=== PATIENT | male | born 1950 | race Two or more races ===

== ENCOUNTER 2019-02-09 11:06 | Inpatient (IN) | payer SELFPAY ==
[~2019-02-09] VITALS: Ht 167.6 cm; Wt 73.6 kg
[2019-02-09 16:28] LABS: Basophils # (auto) 0.1 uL; Basophils % (auto) 1.1 % (0.0-2.0); Eosinophils # (auto) 0.1 uL; Eosinophils % (auto) 1.4 % (0.0-7.0); Hematocrit 45.4 % (41.0-53.0); Hemoglobin 15.5 g/dL (13.5-17.5); Lymphocytes # (auto) 1.6 uL; Mean Corpuscular Hemoglobin 30.6 pg (28.0-32.0); Mean Corpuscular Hgb Conc. 34.1 g/dL (32.0-36.0); Mean Corpuscular Volume 89.8 fL (80.0-100.0); Monocytes # (auto) 0.7 uL; Monocytes % (auto) 7.6 % (0.0-12.0); Neutrophils # (auto) 6.2 uL; Neutrophils % (auto) 71.9 % (37.0-80.0); Nucleated Red Blood Cells % 0.1 %; Platelet Count (auto) 236 10^3/uL (140-450); Red Blood Cells 5.06 10^6/uL (4.5-5.90); Red Cell Distribution Width 13.6 % (11.8-14.3); White Blood Cell 8.7 10^3/uL (4.4-10.8)
[2019-02-09] MEDS ORDERED: ACETAMINOPHEN 325 MG TAB PO ONE (16:45)
[2019-02-09] MEDS ORDERED: cloNIDine HCL 0.1 MG TAB PO ONE (16:45)
[2019-02-09 17:12] LABS: Calcium 9.1 mg/dL (8.5-10.1); Potassium 3.9 mmol/L (3.5-5.1)
[2019-02-09 17:15] LABS: BUN/Creatinine Ratio 10.5
[2019-02-09] MEDS ORDERED: MORPHINE SULF INJ 2 MG/ML SYRINGE 1ML IV PRN ×2 (20:00)
[2019-02-09] MEDS ORDERED: ONDANSETRON HCL 4 MG/2 ML VIAL IV PRN (20:00)
[2019-02-09] MEDS ORDERED: ACETAMINOPHEN 500 MG TAB PO PRN (20:00)
[2019-02-09] MEDS ORDERED: NITROGLYCERIN 0.4 MG SL TAB SL PRN (20:00)
[2019-02-09] MEDS ORDERED: HYDROcodone-ACET 5/325MG TAB PO PRN (20:00)
[2019-02-09] MEDS ORDERED: hydrALAZINE HCL 20 MG/ML VL IV PRN (20:00)
[2019-02-09] MEDS: ATORVASTATIN 20 MG TAB PO SCH (21:31)
[2019-02-09 21:55] VITALS: BP 135/82
--- NOTE | 2019-02-09 21:55 | NUR ---
Telemetry admit from ER LOYDA CASH admitted to Telemetry unit after SBAR received. Patient oriented to ZAKIA JIMENEZ RN primary RN, unit, room, bed, and unit policies regarding patient care and visiting hours. Patient now on continuous telemetry monitoring, tele box #1 and telemetry reading on arrival to unit is sinus bradycardia. Patient alert and orientated x4. No s/s of SOB or distress noted and patient denies pain at this time. No facial droop noted. Patient's speech clear and appropriate. Bed locked in lowest position with side rails up x2. Bed alarm on for safety. Call light left within reach. Patient placed on bedside oxygen, weighed by bedscale and encouraged to call if they need something. All questions and concerns addressed, patient verbalized understanding. Will continue to monitor q 1hr and PRN. Note:
[2019-02-09 22:07] VITALS: BP 135/82
[2019-02-10] VITALS (7 sets, daily range): BP systolic 131–163; BP diastolic 68–78
[2019-02-10 04:36] LABS: Cholesterol 193 mg/dL (< 200); HDL Cholesterol 31 mg/dL (40-59); LDL Cholesterol 134 mg/dL (< 100); Triglycerides 266 mg/dL (< 150)
--- NOTE | 2019-02-10 06:30 | NUR ---
Patient's heart rate remained in the 40's and 50's, patient was asymptomatic and denied any pain or dizziness. Vitals remained stable. Patient stated feeling fine.
--- NOTE | 2019-02-10 08:15 | NUR ---
Opening Note Assumed care of patient, he is A & O x4, no s/s of distress at this time. Patient is ambulatory and moving all extremities with ease. POC discussed with patient. He is comfortable at this time, no complaints of headache or dizziness at this time. Educated patient to call if symptoms recur. Patient states that he rides his bike every day and he feels good usually. Bed is in lowest, locked position, call light within reach, bed rails up x2. Will continue to monitor Q1h and PRN.
[2019-02-10] MEDS: FAMOTIDINE 20 MG TAB PO SCH (09:40)
[2019-02-10] MEDS: ASPirin 81 mg TAB PO SCH (09:40)
--- NOTE | 2019-02-10 10:30 | NUR ---
Patient to MRI
--- NOTE | 2019-02-10 15:00 | NUR ---
chief radiologic technologist at bedside.
--- NOTE | 2019-02-10 16:55 | NUR ---
Paged Dr. Thomas Patient BP elevated. Orders received, read back and verified. Will medicate per orders.
[2019-02-10] MEDS ORDERED: amLODIPine BESYLATE 5 MG TAB PO ONE (17:00)
[2019-02-10 18:56] LABS: Urine Bacteria NONE SEEN /hpf (None Seen); Urine Blood Negative /uL (Negative); Urine Specific Gravity 1.005 (1.001-1.035); Urine WBC 1 /hpf (0 - 3)
[2019-02-10 19:22] LABS: Alcohol, Urine < 3.0 mg/dL (0-5); Amphetamine Screen, Urine NEGATIVE (NEGATIVE); Barbiturate Scree,Urine NEGATIVE (NEGATIVE); Benzodiazephine Screen, Urine NEGATIVE (NEGATIVE); Cannabinoid Screen, Urine NEGATIVE (NEGATIVE); Cocaine Screen, Urine NEGATIVE (NEGATIVE); Opiate Scree,Urine NEGATIVE (NEGATIVE); Phencyclidine Screen, Urine NEGATIVE (NEGATIVE)
--- NOTE | 2019-02-10 19:35 | NUR ---
Opening Shift Note Assumed care of patient, awake and alert. No S/S of distress/SOB or pain. Bed in lowest locked position, side rails up x2, call light within reach. Bilateral hand valet and pedal pushes equal bilaterally, no facial drooping noted. Instructed on POC and to call for assist PRN via door to door selling agent RN, will continue to monitor for changes Q1hr and PRN.
[2019-02-10] MEDS: ATORVASTATIN 20 MG TAB PO SCH (21:08)
--- NOTE | 2019-02-10 21:28 | NUR ---
RT NOTE WENT TO PLACE PT ON CPAP PT DID NOT WANT TO WEAR CPAP TONIGHT. PT IN NO RESP DISTRESS. PT SATS 97% RA B/S CLEAR.
[2019-02-10] MEDS ORDERED: ATORVASTATIN 20 MG TAB PO SCH (22:00)
[2019-02-11 04:30] VITALS: BP 152/76
--- NOTE | 2019-02-11 06:02 | NUR ---
Blood Pressure Reassessment Blood pressure noted to be 152/76 with 52 heart rate. Blood pressure reassessed and found to be 142/78 with 48 heart rate. No s/s of distress. Will continue care.
--- NOTE | 2019-02-11 06:58 | NUR ---
Closing Note Patient lying in bed, awake and alert. No s/s of distress. Bed in lowest locked position, side rails up x2, call light within reach. Care endorsed to dayshift RN.
[2019-02-11 07:35] LABS: Basophils # (auto) 0.1 uL; Eosinophils # (auto) 0.2 uL; Eosinophils % (auto) 2.7 % (0.0-7.0); Hematocrit 42.6 % (41.0-53.0); Hemoglobin 14.8 g/dL (13.5-17.5); Lymphocytes # (auto) 1.4 uL; Lymphocytes % (auto) 19.7 % (10.0-50.0); Mean Corpuscular Hemoglobin 30.8 pg (28.0-32.0); Mean Corpuscular Hgb Conc. 34.7 g/dL (32.0-36.0); Mean Corpuscular Volume 88.6 fL (80.0-100.0); Monocytes # (auto) 0.7 uL; Monocytes % (auto) 9.8 % (0.0-12.0); Neutrophils # (auto) 4.8 uL; Neutrophils % (auto) 66.8 % (37.0-80.0); Nucleated Red Blood Cells % 0.1 %; Platelet Count (auto) 224 10^3/uL (140-450); Red Blood Cells 4.81 10^6/uL (4.5-5.90); Red Cell Distribution Width 13.7 % (11.8-14.3); White Blood Cell 7.2 10^3/uL (4.4-10.8)
[2019-02-11 07:47] LABS: Calcium 8.9 mg/dL (8.5-10.1); INR 0.98 (0.9-1.15); Partial Thromboplastin Time 29.5 sec (23.64-32.05); Potassium 4.2 mmol/L (3.5-5.1)
[2019-02-11 09:00] VITALS: BP 162/80
--- NOTE | 2019-02-11 09:21 | NUR ---
Opening Note Received report on the patient. Awake lying in bed. Patient shows no signs of distress at this time. Discussed plan of care with the patient. Bed is in the lowest position, side rails up x2, and the call light is within reach. Will continue to monitor.
[2019-02-11] MEDS: ASPirin 81 mg TAB PO SCH (09:39)
[2019-02-11] MEDS: FAMOTIDINE 20 MG TAB PO SCH (09:40)
[2019-02-11] MEDS ORDERED: hydrALAZINE HCL 25 MG TAB PO SCH (10:00)
[2019-02-11] MEDS ORDERED: amLODIPine BESYLATE 5 MG TAB PO SCH (10:00)
[2019-02-11] MEDS ORDERED: CLOPIDOGREL BISULFATE 75 MG TAB PO SCH (10:59)
--- NOTE | 2019-02-11 11:31 | NUR ---
Nutrition Assessment Notes please see attached link for complete assessment Est. Needs based on BW (73 kg): 8139-5631 kcal (23-25 kcal/kgBW), 73-80 gms pro (1.0-1.1 gms/kgBW). Will continue to monitor pertinent labs and reassess nutrient need prn Addendum: 02/11/19 at [address] Amended: Links added.
[2019-02-11] MEDS ORDERED: amLODIPine BESYLATE 5 MG TAB PO ONE (11:45)
[2019-02-11] MEDS ORDERED: ASPI81CH43 PO (11:47)
[2019-02-11] MEDS ORDERED: AML5T PO (11:47)
[2019-02-11] MEDS ORDERED: CLOP75TA28 PO (11:47)
[2019-02-11] MEDS ORDERED: ATOR20TA50 PO (11:47)
[2019-02-11] MEDS ORDERED: HYDR-2691 PO (11:47)
[2019-02-11 13:27] VITALS: BP 144/78
--- NOTE | 2019-02-11 15:00 | NUR ---
Discharge instructions given as ordered. Encourage to follow up with [facility]. The patient needs a primary care doctor set up and needs insurance to be set up. All questions and concerns addressed. Patient verbalized understanding. IV removed, catheter intact, pressure dressing applied. Telemetry unit returned to ICU. Patient ambulated out of the hospital with all personal belongings. They were given a bus pass to get home. No distress noted at time of departure.
[2019-02-12] MEDS ORDERED: amLODIPine BESYLATE 5 MG TAB PO SCH (10:00)
== END 2019-02-11 15:30 | disposition home or self-care (01) | DRG 65 ==
LOC: ER 11:06 → TELE 11:07 → TELE-EAST 21:48
PROVIDERS: ADMIT Nurse Practitioner Acute Care; ATTEND Internal Medicine
DX: I63.81 Other cerebral infarction due to occlusion or stenosis of small artery (principal); I16.1 Hypertensive emergency; R47.81 Slurred speech; N18.3 Chronic kidney disease, stage 3 (moderate); I12.9 Hypertensive chronic kidney disease with stage 1 through stage 4 chronic kidney disease, or unspecified chronic kidney disease; F17.200 Nicotine dependence, unspecified, uncomplicated; G47.10 Hypersomnia, unspecified; I65.21 Occlusion and stenosis of right carotid artery; E78.5 Hyperlipidemia, unspecified; I67.2 Cerebral atherosclerosis; Z82.49 Family history of ischemic heart disease and other diseases of the circulatory system; Z83.3 Family history of diabetes mellitus; Z79.899 Other long term (current) drug therapy
CPT/HCPCS: 36415; 70450; 70551; 71045; 80048; 80061; 80307; 81001; 83735; 85025; 85610; 85730; 93005; 93306; 93886; G0378

== ENCOUNTER 2019-04-18 10:40 | Emergency (ER) | payer MEDICAID ==
[~2019-04-18] VITALS: Ht 160 cm; Wt 75.7 kg
[~2019-04-18 10:40] MED LIST: AML5T PO; ASPI81CH43 PO; ATOR20TA50 PO; CLOP75TA28 PO; HYDR-2691 PO
[2019-04-18 11:16] VITALS: BP 118/62
== END 2019-04-18 12:07 | disposition home or self-care (01) ==
LOC: ER 10:46
DX: R42 Dizziness and giddiness (principal); Z76.0 Encounter for issue of repeat prescription